=== PATIENT | female | born 1995 | race Caucasian/White ===

== ENCOUNTER 2022-09-02 06:07 | Inpatient (IN) ==
[2022-09-02] MEDS ORDERED: D5 1/2 NS 1,000 ML 1,000 ML IV ONE (06:30)
[2022-09-02] MEDS ORDERED: PITOCIN ONE ×3 (06:30→22:44)
[2022-09-02] MEDS ORDERED: BETADINE SOLN ONE (06:31)
[2022-09-02] MEDS ORDERED: D5 1/2 NS 1,000 mL + PITOCIN 20 UNITS/L IV 20 UNITS/1,000 ML BAG IV ONE (06:32)
[2022-09-02] MEDS ORDERED: D5 LR + PITOCIN 10 UNITS/L 10 UNITS/1,000 ML BAG IV ONE ×2 (06:32→20:48)
[2022-09-02] MEDS ORDERED: D5 LR + PITOCIN 10 UNITS/L 10 UNITS/1,000 ML BAG IV PRN (07:19)
[2022-09-02] MEDS ORDERED: MORPHINE SULFATE INJ 2 MG INJ IVP PRN (07:19)
[2022-09-02] MEDS ORDERED: PITOCIN IVP ONE (07:19)
[2022-09-02] MEDS ORDERED: NUBAIN INJ 20 MG AMP IVP PRN (07:19)
[2022-09-02] MEDS ORDERED: PHENERGAN INJ 25 MG IM PRN ×2 (07:19→21:56)
[2022-09-02] MEDS ORDERED: D5 1/2 NS 1,000 ML 1,000 ML IV SCH (07:19)
[2022-09-02] MEDS ORDERED: REGLAN INJ 10 MG VIAL IVP PRN ×2 (07:19→21:56)
--- NOTE | 2022-09-02 07:25 | DR.OB ---
OB Quick Note - Assessment/Plan Assessment/Plan: L&D 09/02/22 at 6:50am S-No complaint. O-Afebrile,VSS [id number] with good LTV, +accel, no decel. CTX=none CVX=2cm/50%/-1/VTX AROM with clear fluid. IUPC and FSE placed. A-IUP at 38 6/7 weeks for induction PIH anemia GERD P-Begin pitocin induction Check preeclamptic labs Anticipate
[2022-09-02] MEDS ORDERED: STADOL INJ IVP PRN (07:48)
[2022-09-02 07:52] LABS: INR 0.97 (0.8-1.3)
[2022-09-02] MEDS ORDERED: NS 500 ML IV 500 ML IV ONE (12:19)
[2022-09-02] MEDS ORDERED: LR 1,000 ML IV 1,000 ML IV ONE ×2 (12:19→21:52)
--- NOTE | 2022-09-02 12:28 | DR.OB ---
OB Quick Note - Assessment/Plan Assessment/Plan: L&D 09/02/22 at 12:10pm Pitocin=16mu/min. S-No complaint except CTX. O-Afebrile,VSS [id number] with good LTV, +accel, no decel. CTX=q 1 1/2 to 3 min., about 35-55mmHg CVX=3-4cm/75%/-1 A-IUP at 38 6/7 weeks for induction PIH anemia GERD P-Cont. pitocin induction Anticipate
[2022-09-02] MEDS ORDERED: STADOL INJ ONE (13:57)
[2022-09-02] MEDS ORDERED: FENTANYL VIAL INJ 100 mcg ONE (16:04)
[2022-09-02] MEDS ORDERED: NAROPIN EPIDURAL 0.2% 100 ML ONE (16:05)
[2022-09-02] MEDS ORDERED: EPHEDRINE SULFATE INJ ONE (16:41)
--- NOTE | 2022-09-02 17:58 | DR.OB ---
OB Quick Note - Assessment/Plan Assessment/Plan: L&D 09/02/22 at 5:50pm Pitocin=16mu/min. S-No complaint. s/p epidural. O-Afebrile,VSS [id number] with good LTV, +accel, no decel. CTX=q 1 1/2 to 2 min., about 35-65mmHg CVX=ant. lip/100%/0 A-IUP at 38 6/7 weeks for induction PIH anemia GERD P-Cont. pitocin induction Anticipate
[2022-09-02] MEDS ORDERED: ANCEF VIAL 1 GRAM ONE (21:32)
[2022-09-02] MEDS ORDERED: NS 100 ML IV 100 ML ONE (21:32)
--- NOTE | 2022-09-02 21:33 | DR.OB ---
OB Quick Note - Assessment/Plan Assessment/Plan: L&D 09/02/22 at 9:28pm Pitocin=20mu/min. S-No complaint. O-Afebrile,VSS [id number] with good LTV, +accel, no decel. CTX=q 1 1/2 to 2 min., about 45-55mmHg CVX=complete but no descensus despite 3 hours pushing. Head at 0 station but large caput noted. A-IUP at 38 6/7 weeks with failure to descend P-To C/S.
[2022-09-02] MEDS ORDERED: LIDOCAINE 2%-EPI 1:200,000 ONE (21:45)
[2022-09-02] MEDS ORDERED: VERSED ONE (21:47)
[2022-09-02] MEDS ORDERED: BARHEMSYS INJ IVP PRN (21:56)
[2022-09-02] MEDS ORDERED: BENADRYL INJ 50 MG VIAL IVP PRN (21:56)
[2022-09-02] MEDS ORDERED: ZOFRAN INJ 4 MG VIAL IVP PRN (21:56)
[2022-09-02] MEDS ORDERED: DILAUDID INJ IVP PRN (21:56)
[2022-09-02] MEDS ORDERED: DILAUDID INJ ONE (22:09)
[2022-09-03] MEDS ORDERED: PERCOCET TAB 5/325 MG PO PRN ×2 (00:03→07:24)
[2022-09-03] MEDS ORDERED: MYLICON TAB 80 MG CHEW PO PRN (00:03)
[2022-09-03] MEDS ORDERED: TORADOL 30 MG VIAL IVP PRN (00:03)
[2022-09-03] MEDS ORDERED: D5 1/2 NS 1,000 ML 1,000 ML with PITOCIN 20 UNITS IV SCH ×2 (00:03)
[2022-09-03] MEDS ORDERED: BENADRYL INJ 50 MG VIAL IVP PRN (00:03)
[2022-09-03] MEDS ORDERED: ZOFRAN INJ 4 MG VIAL IVP PRN (00:03)
[2022-09-03] MEDS ORDERED: REGLAN INJ 10 MG VIAL IVP PRN (00:03)
[2022-09-03] MEDS ORDERED: NARCAN INJ IVP PRN (00:03)
[2022-09-03] MEDS ORDERED: ADACEL or BOOSTRIX TDaP VACCINE IM ONE (00:03)
[2022-09-03 05:14] LABS: HEMATOCRIT 21.7 % (36.0-47.0); HEMOGLOBIN 7.2 g/dL (12.0-16.0)
[2022-09-03] MEDS: PROTONIX TAB 40 MG PO SCH (09:45)
[2022-09-03] MEDS: PRENATAL PLUS PO SCH (09:45)
[2022-09-03] MEDS: COLACE CAP 100 MG PO SCH ×2 (10:02→23:00)
[2022-09-03] MEDS: MOTRIN TAB 800 MG PO PRN ×2 (10:05→17:44)
[2022-09-03] MEDS: BACTROBAN TOPICAL OINT TOP SCH ×2 (14:50→22:00)
[2022-09-03] MEDS: FERROUS GLUCONATE PO SCH (17:01)
[2022-09-04] MEDS: MOTRIN TAB 800 MG PO PRN (02:44)
[2022-09-04] MEDS: BACTROBAN TOPICAL OINT TOP SCH (05:38)
[2022-09-04] MEDS: FERROUS GLUCONATE PO SCH (06:36)
[2022-09-04] MEDS ORDERED: ADACEL or BOOSTRIX TDaP VACCINE IM ONE (08:55)
[2022-09-04] MEDS: COLACE CAP 100 MG PO SCH (09:03)
[2022-09-04] MEDS: PROTONIX TAB 40 MG PO SCH (09:03)
[2022-09-04] MEDS: PRENATAL PLUS PO SCH (09:03)
[2022-09-04 09:28] VITALS: BP 129/77
== END 2022-09-04 10:50 | disposition home or self-care (01) | DRG 788 ==
LOC: LD 06:07 → MED/SURG 09-03 00:06
PROVIDERS: ADMIT Specialist; ATTEND Specialist
DX: Z3A.38 38 weeks gestation of pregnancy; Z37.0 Single live birth; O13.3 Gestational [pregnancy-induced] hypertension without significant proteinuria, third trimester; K21.9 Gastro-esophageal reflux disease without esophagitis; O99.613 Diseases of the digestive system complicating pregnancy, third trimester; O62.0 Primary inadequate contractions; O99.013 Anemia complicating pregnancy, third trimester; D50.8 Other iron deficiency anemias

== ENCOUNTER 2024-05-14 06:10 | Inpatient (IN) ==
[2024-05-14] MEDS: D5 1/2 NS 1,000 ML 1,000 ML IV SCH (06:14)
[2024-05-14] MEDS: LR 1,000 ML IV 1,000 ML IV ONE ×2 (06:40→07:59)
[2024-05-14] MEDS: NOZIN NASAL SANITIZER TP ONE (06:45)
[2024-05-14 07:07] LABS: URIC ACID 3.1 mg/dL (2.6-6.0)
[2024-05-14] MEDS: ANCEF VIAL 1 GRAM IVP ONE (07:17)
[2024-05-14] MEDS: NS 100 ML IV 100 ML ONE (07:17)
[2024-05-14] MEDS: ZOFRAN INJ 4 MG VIAL ONE (07:27)
[2024-05-14] MEDS: VERSED ONE (07:27)
[2024-05-14] MEDS: MARCAINE SPINAL ONE (07:27)
[2024-05-14] MEDS: DILAUDID INJ ONE (07:27)
[2024-05-14] MEDS: XYLOCAINE 2 % (PLAIN) ONE (07:27)
[2024-05-14] MEDS ORDERED: BARHEMSYS INJ IVP PRN (09:01)
[2024-05-14] MEDS ORDERED: REGLAN INJ 10 MG VIAL IVP PRN ×2 (09:01→10:19)
[2024-05-14] MEDS ORDERED: ZOFRAN INJ 4 MG VIAL IVP PRN ×2 (09:01→10:19)
[2024-05-14] MEDS: BENADRYL INJ 50 MG VIAL IVP PRN ×2 (09:12→10:42)
[2024-05-14] MEDS ORDERED: MYLICON TAB 80 MG CHEW PO PRN (10:19)
[2024-05-14] MEDS ORDERED: NARCAN INJ IVP PRN (10:19)
[2024-05-14] MEDS: TORADOL 30 MG VIAL IVP PRN (10:44)
[2024-05-14] MEDS: D5 1/2 NS 1,000 ML 1,000 ML with PITOCIN 20 UNITS IV SCH (10:44)
[2024-05-14 17:40] LABS: HEMATOCRIT 21.3 % (36.0-47.0)
[2024-05-14 17:51] LABS: HEMOGLOBIN 6.7 g/dL (12.0-16.0)
[2024-05-14] MEDS: FERROUS GLUCONATE PO SCH (17:59)
[2024-05-14] MEDS: ADACEL or BOOSTRIX TDaP VACCINE IM ONE (19:27)
[2024-05-14] MEDS: NS 250 ML IV 250 ML IV ONE (23:12)
[2024-05-15] MEDS: PERCOCET TAB 5/325 MG PO PRN ×2 (01:23→11:23)
[2024-05-15] MEDS: NS 250 ML IV 250 ML IV ONE (04:19)
[2024-05-15 08:00] LABS: HEMOGLOBIN 9.8 g/dL (12.0-16.0)
[2024-05-15] MEDS: PRENATAL PLUS PO SCH (08:06)
[2024-05-15] MEDS: COLACE CAP 100 MG PO SCH (08:06)
[2024-05-15] MEDS: MOTRIN TAB 800 MG PO PRN (08:06)
[2024-05-15] MEDS: BACTROBAN TOPICAL OINT TOP SCH (14:42)
[2024-05-16 12:04] VITALS: BP 140/83; PULSE 87; TEMP 97.9; O2SAT 97
[2024-05-16 14:03] VITALS: RESP 18
== END 2024-05-16 15:45 | disposition home or self-care (01) | DRG 788 ==
LOC: LD 06:10 → MED/SURG 10:37
PROVIDERS: ADMIT Specialist; ATTEND Specialist
DX: O13.3 Gestational [pregnancy-induced] hypertension without significant proteinuria, third trimester; N85.8 Other specified noninflammatory disorders of uterus; O99.02 Anemia complicating childbirth; D50.8 Other iron deficiency anemias; Z59.19 Other inadequate housing; O34.211 Maternal care for low transverse scar from previous cesarean delivery; Z37.0 Single live birth; Z3A.38 38 weeks gestation of pregnancy